=== PATIENT | female | born 1960 | race Caucasian/White ===

== ENCOUNTER 2016-03-26 07:39 | Emergency (ER) | payer OTHER, MEDICAID ==
[~2016-03-26 07:39] MED LIST: ADVAI500I PO; ALBU8I INH; ATOR20TA PO; CEFU1TAB20 PO; DUONI NEB; UMEC1INH; VITA10002 PO; VITA500T10 PO; Z.0.OXYGEN INH; [UNRECOGNIZED DRUG - CODE]
[2016-03-26] MEDS ORDERED: SODIUM CHLOR 0.9% 1000 ML INJ 1,000 ML IV ONE (07:48)
[2016-03-26 07:50] VITALS: BP 158/84; PULSE 97; RESP 20; TEMP 97.8; O2SAT 92
--- NOTE | 2016-03-26 07:55 | PD ---
HPI Chief Complaint: Respiratory Distress Time Seen by Provider: 07:47 Travel History International Travel<30 days: No Contact w/Intl Traveler<30days: No Traveled to known affect area: No History of Present Illness HPI 55-year-old female with history of COPD, presents to the ER today for 1 day history of dizziness, feels like the room is spinning, nausea, shortness of breath, chest discomfort. She denies any fevers, abdominal pain, diarrhea, or any other symptoms. Symptoms worsen with head movement. Modifying Factors: Worse with movement Associated Signs & Symptoms: Dizziness, nausea, shortness of breath, chest discomfort Risk Factors: COPD history PFSH Past Medical History Hx Anticoagulant Therapy: Yes (ASA 325MG) Arthritis: No Asthma: Yes Autoimmune Disease: No Cancer: No Cardiovascular Problems: Yes (CHOL) High Cholesterol: Yes (DIET CONTROLLED) Chemotherapy: No COPD: Yes Cerebrovascular Accident: No Diabetes: No Diminished Hearing: No Endocrine: No Gastrointestinal Disorders: No Genitourinary: Yes Hypertension: No Immune Disorder: No Implanted Vascular Access Dvce: No Kidney Stones: Yes (2004) Musculoskeletal: No Neurologic: No Psychiatric: No Reproductive: Yes (OVARIAN CYSTS) Respiratory: Yes (COPD AND BRONCHIECTASIS - ON 3L/NC 04/10) Immunizations Current: Yes Pneumonia: Yes Radiation Therapy: No Thyroid Disease: No Menopausal: Yes : 5 Para: 3 Miscarriage: 1 : 1 Ovarian Cysts: Yes Past Surgical History Abdominal Surgery: Yes (LAPAROSCOPY- LIVER LAC REPAIR.) AICD: No Arteriovenous Shunt: No Section: Yes Ear Surgery: No Genitourinary Surgery: Yes (LITHOTRIPSY X 2 ) Gynecologic Surgery: Yes Insulin Pump: No Joint Replacement: No Neurologic Surgery: No Pacemaker: No Thoracic Surgery: Yes Other Surgery: Yes (LITHOTRYPSY 3 WEEKS AGO, LIVER SURGERY) Social History Alcohol Use: No Tobacco Use: No (QUIT 2006) Substance Use: No Allergies-Medications (Allergen,Severity, Reaction): Coded Allergies: Simvastatin (Verified Allergy, Severe, MUSCLE CRAMPING, FATIGUE, 03/26/16) Reported Meds & Prescriptions Reported Meds & Active Scripts Active Reported Doxycycline (Doxycycline (Monohydrate)) 100 Mg Cap 1 Cap PO TID Dicyclomine (Dicyclomine HCl) 10 Mg Cap 10 Mg PO TID Welchol (Colesevelam HCl) 625 Mg Tab 1,875 Mg PO BID Aspirin 81 (Aspirin) 81 Mg Tabdr 81 Mg PO DAILY Duoneb (Ipratropium-Albuterol Neb) 0.5-2.5 Mg/3 Ml Neb 1 Nebule INH Q4HR NEB Ventolin Hfa 18 GM Inh (Albuterol Sulfate) 90 Mcg/Act Aer 2 Puff INH Q4H PRN Advair Diskus Inh (Fluticasone-Salmeterol Inh) 500-50 Mcg/Blist Aer 1 Puff INH BID Rinse mouth after use. Review of Systems Except as stated in HPI: all other systems reviewed are Neg Physical Exam Narrative GENERAL: Well-nourished, well-developed middle-aged white female patient in moderate distress, appears anxious, awake, alert, oriented 3. SKIN: Warm and dry. HEAD: Normocephalic. EYES: No scleral icterus. No injection or drainage. NECK: Supple, trachea midline. CARDIOVASCULAR: Regular rate and rhythm without murmurs, gallops, or rubs. RESPIRATORY: Breath sounds equal bilaterally. No accessory muscle use. GASTROINTESTINAL: Abdomen soft, non-tender, nondistended. MUSCULOSKELETAL: No cyanosis, or edema. BACK: Nontender without obvious deformity. No CVA tenderness. NEUROLOGICAL: Awake and alert. Cranial nerves II through XII intact. Motor and sensory grossly within normal limits. Five out of 5 muscle strength in all muscle groups. Normal speech. Data Data Last Documented VS Vital Signs Date Time Temp Pulse Resp B/P Pulse Ox O2 Delivery O2 Flow Rate FiO2 03/26/16 08:06 92 Nasal Cannula 3 03/26/16 08:06 97 20 03/26/16 07:50 97.8 158/84 Orders Complete Blood Count With Diff (03/26/16 07:48) Comprehensive Metabolic Panel (03/26/16 07:48) Magnesium (Mg) (03/26/16 07:48) Ckmb (Isoenzyme) Profile (03/26/16 07:48) Troponin I (03/26/16 07:48) Act Partial Throm Time (Ptt) (03/26/16 07:48) Prothrombin Time / Inr (Pt) (03/26/16 07:48) Chest, Single Ap (03/26/16 07:48) Ecg Monitoring (03/26/16 07:48) Iv Access Insert/Monitor (03/26/16 07:48) Oximetry (03/26/16 07:48) Meclizine (Antivert) (03/26/16 08:00) Ondansetron Inj (Zofran Inj) (03/26/16 08:00) Sodium Chloride 0.9% Flush (Ns Flush) (03/26/16 08:00) Sodium Chlor 0.9% 1000 Ml Inj (Ns 1000 M (03/26/16 07:48) Albuterol-Ipratropium Neb (Duoneb Neb) (03/26/16 08:00) Promethazine Inj (Phenergan Inj) (03/26/16 08:30) Ct Brain W/O Iv Contrast(Rout) (03/26/16 08:35) Urinalysis - C+S If Indicated (03/26/16 09:16) Meclizine (Antivert) (03/26/16 09:30) Urine Culture (03/26/16 09:24) Labs Laboratory Tests Test 03/26/16 03/26/16 07:50 09:24 White Blood Count 10.8 TH/MM3 Red Blood Count 4.62 MIL/MM3 Hemoglobin 14.0 GM/DL Hematocrit 43.0 % Mean Corpuscular Volume 93.1 FL Mean Corpuscular Hemoglobin 30.2 PG Mean Corpuscular Hemoglobin 32.5 % Concent Red Cell Distribution Width 13.1 % Platelet Count 305 TH/MM3 Mean Platelet Volume 6.6 FL Neutrophils (%) (Auto) 53.6 % Lymphocytes (%) (Auto) 35.5 % Monocytes (%) (Auto) 8.8 % Eosinophils (%) (Auto) 1.3 % Basophils (%) (Auto) 0.8 % Neutrophils # (Auto) 5.8 TH/MM3 Lymphocytes # (Auto) 3.8 TH/MM3 Monocytes # (Auto) 1.0 TH/MM3 Eosinophils # (Auto) 0.1 TH/MM3 Basophils # (Auto) 0.1 TH/MM3 CBC Comment DIFF FINAL Differential Comment Prothrombin Time 9.8 SEC Prothromb Time International 0.9 RATIO Ratio Activated Partial 23.5 SEC Thromboplast Time Sodium Level 141 MEQ/L Potassium Level 4.2 MEQ/L Chloride Level 104 MEQ/L Carbon Dioxide Level 27.8 MEQ/L Anion Gap 9 MEQ/L Blood Urea Nitrogen 13 MG/DL Creatinine 0.57 MG/DL Estimat Glomerular Filtration 110 ML/MIN Rate Random Glucose 133 MG/DL Calcium Level 8.5 MG/DL Magnesium Level 2.3 MG/DL Total Bilirubin 0.3 MG/DL Aspartate Amino Transf 67 U/L (AST/SGOT) Alanine Aminotransferase 114 U/L (ALT/SGPT) Alkaline Phosphatase 88 U/L Total Creatine Kinase 77 U/L Troponin I LESS THAN 0.02 NG/ML Total Protein 7.9 GM/DL Albumin 3.8 GM/DL Urine Collection Type CLEAN CATCH Urine Color YELLOW Urine Turbidity CLEAR Urine pH 6.0 Urine Specific [place] 1.016 Urine Protein TRACE mg/dL Urine Glucose (UA) NEG mg/dL Urine Ketones NEG mg/dL Urine Occult Blood NEG Urine Nitrite NEG Urine Bilirubin NEG Urine Leukocyte Esterase NEG Urine RBC 0-3 /hpf Urine WBC 0-2 /hpf Urine Squamous Epithelial > 8 /hpf Cells Urine Bacteria MOD /hpf Microscopic Urinalysis Comment CULTURE INDICATED Urine Collection Time 09:24 [facility] Medical Decision Making Medical Screen Exam Complete: Yes Emergency Medical Condition: Yes Medical Record Reviewed: Yes Interpretation(s) EKG shows sinus tachycardia at a rate of 100 bpm, no ST elevation or depression , and no arrhythmias. No significant T-wave inversions. Laboratory Tests Test 03/26/16 03/26/16 07:50 09:24 Mean Platelet Volume 6.6 FL (7.0-11.0) Monocytes (%) (Auto) 8.8 % (0.0-8.0) Monocytes # (Auto) 1.0 TH/MM3 (0-0.9) Activated Partial 23.5 SEC Thromboplast Time (24.3-30.1) Random Glucose 133 MG/DL (74-106) Aspartate Amino Transf 67 U/L (15-37) (AST/SGOT) Alanine Aminotransferase 114 U/L (10-53) (ALT/SGPT) Troponin I LESS THAN 0.02 NG/ML (0.02-0.05) Urine Squamous Epithelial > 8 /hpf (0-5) Cells Urine Bacteria MOD /hpf (NONE) Last [address] 03/26/16 0880 Signed Impressions: Service Date/Time: Saturday, March 26, 2016 08:53 - CONCLUSION: Normal examination for a patient of this age. Sandra Srivastava MD Chest X-Ray 03/26/16 0788 Signed Impressions: Service Date/Time: Saturday, March 26, 2016 08:08 - CONCLUSION: No acute disease. Liborio Castro MD FACR Differential Diagnosis Dizziness, nausea, chest discomfort, shortness of breathvertigo versus dehydration versus metabolic issues versus dysrhythmias versus COPD exacerbation versus pneumonia Narrative Course EKG did not show significant dysrhythmias. Vital signs are stable in the ER. She has no focal neurological deficits and I do not suspect an acute intracranial process. CT of the brain is negative for any signs of acute intracranial processes. Her lab work did not indicate any significant metabolic issues or signs of dehydration. Patient was given anti-medics and meclizine in the ER. On reevaluation at 10:30 AM, she is feeling some improvement. At this point, she was ambulated in the ER and is doing well. The plan was discussed with the patient and she states understanding. Diagnosis Primary Impression: BENIGN PAROXYSMAL VERTIGO, UNSPECIFIED EAR Med/Other Pt SpecificInfo: Prescription(s) given Scripts Promethazine (Phenergan)25 Mg Tab25 Mg PO Q6H PRN (Nausea/Vomiting) #7 TAB Ref 0 Prov:Yesy Pete MD 03/26/16 Meclizine 25 Mg Tab25 Mg PO DIRECTED PRN (VERTIGO) #20 TAB Ref 0 Prov:Yesy Pete MD 03/26/16 Disposition: 01 DISCHARGE HOME Condition: Stable Yesy Pete MD Mar 26, 2016 07:55
[2016-03-26 08:00] LABS: AUTOMATED NEUTROPHIL # 5.8 TH/MM3 (1.8-7.7); BASOPHIL # 0.1 TH/MM3 (0-0.2); BASOPHIL % 0.8 % (0.0-2.0); EOSINOPHIL # 0.1 TH/MM3 (0-0.4); EOSINOPHIL % 1.3 % (0.0-4.0); HEMO FLAGS DIFF FINAL; LYMPH % 35.5 % (9.0-44.0); LYMPHOCYTE # 3.8 TH/MM3 (1.0-4.8); MEAN CELL VOLUME 93.1 FL (80.0-100.0); MEAN CORPUSCULAR HEMOGLOBIN 30.2 PG (27.0-34.0); MEAN CORPUSCULAR HGB CONC 32.5 % (32.0-36.0); MONO % 8.8 % (0.0-8.0); NEUT % 53.6 % (16.0-70.0); PLATELET COUNT 305 TH/MM3 (150-450); RED BLOOD COUNT 4.62 MIL/MM3 (4.00-5.30); RED CELL DISTRIBUTION WIDTH 13.1 % (11.6-17.2); WHITE BLOOD COUNT 10.8 TH/MM3 (4.0-11.0)
[2016-03-26] MEDS ORDERED: ONDANSETRON HCL 4 MG/2 ML VIAL IVP ONE (08:00)
[2016-03-26] MEDS ORDERED: RESP: ALBUTEROL 2.5 MG/IPRATROPIUM 0.5 MG NEB (SCH) INH ONE (08:00)
[2016-03-26] MEDS ORDERED: MECLIZINE HCL 25 MG TAB PO ONE ×2 (08:00→09:30)
[2016-03-26] MEDS ORDERED: SODIUM CHLORIDE 0.9% FLUSH 5 ML FLUSH IVF PRN (08:00)
[2016-03-26 08:06] VITALS: O2SAT 92
[2016-03-26 08:07] LABS: CHLORIDE 104 MEQ/L (98-107); POTASSIUM 4.2 MEQ/L (3.5-5.1); SODIUM (NA) 141 MEQ/L (136-145)
[2016-03-26 08:11] LABS: ANION GAP 9 MEQ/L (5-15); APTT (PATIENT) 23.5 SEC (24.3-30.1); BICARBONATE 27.8 MEQ/L (21.0-32.0); BLOOD UREA NITROGEN 13 MG/DL (7-18); INTERNATIONAL NORMALIZED RATIO 0.9 RATIO; MAGNESIUM 2.3 MG/DL (1.5-2.5); PROTHROMBIN TIME - PATIENT 9.8 SEC (9.8-11.6)
[2016-03-26 08:14] LABS: ALT (GPT) 114 U/L (10-53); AST (GOT) 67 U/L (15-37); GLOMERULAR FILTRATION RATE 110 ML/MIN (>89)
[2016-03-26 08:16] LABS: TOTAL BILIRUBIN ADULT 0.3 MG/DL (0.2-1.0)
[2016-03-26] MEDS ORDERED: ADVA500A INH (08:16)
[2016-03-26] MEDS ORDERED: ASPI-110 PO (08:16)
[2016-03-26] MEDS ORDERED: WELC625T2 PO (08:16)
[2016-03-26] MEDS ORDERED: DICY10CA12 PO (08:16)
[2016-03-26] MEDS ORDERED: IPRASOL INH (08:16)
[2016-03-26] MEDS ORDERED: DOXY1CAP91 PO (08:16)
[2016-03-26] MEDS ORDERED: VENTAER INH (08:16)
[2016-03-26 08:17] LABS: ALKALINE PHOSPHATASE 88 U/L (45-117)
[2016-03-26 08:18] LABS: CREATINE KINASE 77 U/L (26-192)
[2016-03-26] MEDS ORDERED: PROMETHAZINE INJ 25 MG/ML VIAL IM ONE (08:30)
--- NOTE | 2016-03-26 08:42 | RADHPO ---
EXAM DATE/TIME: 03/26/2016 08:08 [facility] COMPARISON: CHEST SINGLE AP, March 17, 2014, 15:04. INDICATIONS : Chest pain, short of breath, nausea, dizziness. MEDICAL HISTORY : Chronic obstructive pulmonary disease. SURGICAL HISTORY : None. ENCOUNTER: Initial ACUITY: 1 day PAIN SCORE: 4/10 LOCATION: Bilateral chest FINDINGS: A single view of the chest demonstrates the lungs to be symmetrically aerated without evidence of mas s, infiltrate or effusion. The cardiomediastinal contours are unremarkable. Osseous structures are intact. CONCLUSION: No acute disease. Liborio Castro MD FACR on March 26, 2016 at 8:40 Board Certified Radiologist. This report was verified electronically.
--- NOTE | 2016-03-26 09:17 | RADHPO ---
EXAM DATE/TIME: 03/26/2016 08:53 [facility] COMPARISON: No previous studies available for comparison. INDICATIONS : Dizziness. Light sensitivity. RADIATION DOSE: 63.15 CTDIvol (mGy) MEDICAL HISTORY : Chronic obstructive pulmonary disease. Renal calculi. SURGICAL HISTORY : section. ENCOUNTER: Initial ACUITY: 1 day PAIN SCALE: 0/10 LOCATION: cranial TECHNIQUE: Multiple contiguous axial images were obtained of the head. Using automated exposure control and adj ustment of the mA and/or kV according to patient size, radiation dose was kept as low as reasonably a chievable to obtain optimal diagnostic quality images. FINDINGS: CEREBRUM: The ventricles are normal for age. No evidence of midline shift, mass lesion, hemorrhage or acute in farction. No extra-axial fluid collections are seen. POSTERIOR FOSSA: The cerebellum and brainstem are intact. The 4th ventricle is midline. The cerebellopontine angle i s unremarkable. EXTRACRANIAL: The visualized portion of the orbits is intact. SKULL: The calvaria is intact. No evidence of skull fracture. CONCLUSION: Normal examination for a patient of this age. Sandra Srivastava MD on March 26, 2016 at 9:15 Board Certified Radiologist. This report was verified electronically.
[2016-03-26 09:27] LABS: BLOOD, URINE NEG (NEG); GLUCOSE,URINE NEG (NEG); KETONE, URINE NEG (NEG); NITRITE,URINE NEG (NEG)
[2016-03-26 09:34] LABS: METHOD OF COLLECTION CLEAN CATCH; URINE COLOR YELLOW (YELLW/STRAW)
[2016-03-26 09:35] LABS: BACTERIA, URINE MOD /hpf; COMMENT (UR) CULTURE INDICATED; CULTURE IF INDICATED CULTURE INDICATED; RBC, URINE 0-3 /hpf (0-3); SQUAMOUS EPITHELIAL CELL URINE > 8 /hpf (0-5); WBC, URINE 0-2 /hpf (0-5)
[2016-03-26] MEDS ORDERED: PROM25TA5 PO (10:46)
[2016-03-26] MEDS ORDERED: MECL-62 PO (10:46)
[2016-03-26 10:49] VITALS: BP 135/73
--- NOTE | 2016-03-27 14:21 | EKG ---
Date Performed: 03/26/2016 Time Performed: 07:38:58 PTAGE: 55 years EKG: Sinus tachycardia. Normal ECG except for rate Compared to prior tracing no significant maloney ge PREVIOUS TRACING : 12/31/2014 21.07 DOCTOR: Prosper Erickson Interpretating Date/Time 03/27/2016 14:17:32
== END 2016-03-26 11:52 | disposition home or self-care (01) ==
LOC: PHED 07:39
DX: H81.10 Benign paroxysmal vertigo, unspecified ear (principal); R07.89 Other chest pain; R11.0 Nausea; R06.02 Shortness of breath; B96.20 Unspecified Escherichia coli [E. coli] as the cause of diseases classified elsewhere; J45.909 Unspecified asthma, uncomplicated; E78.00 Pure hypercholesterolemia, unspecified; J44.9 Chronic obstructive pulmonary disease, unspecified; R00.0 Tachycardia, unspecified; Z87.891 Personal history of nicotine dependence
CPT/HCPCS: 70450; 71010; 80053; 81001; 82550; 83735; 84484; 85025; 85610; 85730; 87077; 87086; 87186; 93005; 94664; 96361; 96372; 96374; 99284; J2405; J2550; J7030

== ENCOUNTER → 2016-06-09 | Outpatient (CLI) | payer OTHER, MEDICAID ==
[~2016-06-09] MED LIST changes: +ADVA500A INH; -ADVAI500I PO; -ALBU8I INH; +ASPI-110 PO; -ATOR20TA PO; -CEFU1TAB20 PO; +DICY10CA12 PO; +DOXY1CAP91 PO; -DUONI NEB; +IPRASOL INH; +MECL-62 PO; +PROM25TA5 PO; -UMEC1INH; +VENTAER INH; -VITA10002 PO; -VITA500T10 PO; +WELC625T2 PO; -Z.0.OXYGEN INH; -[UNRECOGNIZED DRUG - CODE]
--- NOTE | 2016-06-10 08:48 | RSPPFT ---
DATE OF PROCEDURE: 06/09/16 COMMENTS: VOLUMES DYNAMIC: FVC moderately reduced; FEV1 severely reduced. STATIC: VTG moderately increased; RV severely increased; TLC normal. FLOWS: FEV1% and FEF 25-75 severely reduced. DIFFUSION: Moderately reduced. FLOW VOLUME LOOP: Pattern of variable intrathoracic airways obstruction. IMPRESSION: Severe obstructive ventilatory defect with reduction in diffusion consistent with emphysema. Airways resistance is increased. There is significant hyperinflation. There is no significant improvement post-bronchodilator.
== END ==
LOC: HRSP 12:19
PROVIDERS: ATTEND Internal Medicine
DX: J44.9 Chronic obstructive pulmonary disease, unspecified (principal)
CPT/HCPCS: 94060; 94620; 94726; 94729

== ENCOUNTER 2017-03-14 08:07 | Inpatient (IN) | payer OTHER, MEDICARE, MEDICAID ==
[2017-03-14] VITALS (10 sets, daily range): BP systolic 104–131; BP diastolic 50–73; PULSE 97–124; RESP 16–22; TEMP 97.3–101.3; O2SAT 90–99
[~2017-03-14] VITALS: Ht 160 cm; Wt 74.4 kg
[~2017-03-14 08:07] MED LIST changes: -ASPI-110 PO; +ASPI1TAB57 PO; +COLE625 PO; -WELC625T2 PO
--- NOTE | 2017-03-14 08:17 | PD ---
HPI Chief Complaint: Abdominal Pain Time Seen by Provider: 08:17 Travel History International Travel<30 days: No Contact w/Intl Traveler<30days: No Traveled to known affect area: No History of Present Illness HPI 56-year-old female came to the emergency room with history of lower abdominal pain that started yesterday. Patient says she's been unable to sleep all night because of the pain. Patient had a cardiac catheterization that caused intra- abdominal hematoma. This was done in [facility]. She was discharged home by the end of January. Since then she has been doing okay up until this happened. Patient has history of COPD and requires home oxygen. When she came in she was wheezing and short of breath as well. Oxygen saturation was 89% on HER-2 liters of oxygen. Patient denies of any chest pain or any other symptoms. She says she's been nauseous but no vomiting or diarrhea. No blood in her stools. In fact she says she has been constipated for past 1 week and has not been having good bowel movements. Pain worsens when she is sitting up straight. She has to lay down and put the pressure off her abdomen in order to feel better. [facility] Past Medical History Narrative Medical List of her past medical, surgical, social and family history is reviewed from the nursing note. Hx Anticoagulant Therapy: No Arthritis: No Asthma: Yes Autoimmune Disease: No Cancer: No Cardiovascular Problems: Yes (CHOL) High Cholesterol: Yes (DIET CONTROLLED) Chemotherapy: No COPD: Yes Cerebrovascular Accident: No Diabetes: No Diminished Hearing: No Endocrine: No Gastrointestinal Disorders: No Genitourinary: Yes Hypertension: No Immune Disorder: No Implanted Vascular Access Dvce: No Kidney Stones: Yes (2004) Musculoskeletal: No Neurologic: No Psychiatric: No Reproductive: Yes (OVARIAN CYSTS) Respiratory: Yes (COPD, BRONCHIATESIS) Immunizations Current: Yes Pneumonia: Yes Radiation Therapy: No Thyroid Disease: No ?: Not Menopausal: Yes : 5 Para: 3 Miscarriage: 1 : 1 Ovarian Cysts: Yes Past Surgical History Abdominal Surgery: Yes (LAPAROSCOPY- LIVER LAC REPAIR.) AICD: No Arteriovenous Shunt: No Section: Yes Ear Surgery: No Genitourinary Surgery: Yes (LITHOTRIPSY X 2 ) Gynecologic Surgery: Yes Insulin Pump: No Joint Replacement: No Neurologic Surgery: No Pacemaker: No Thoracic Surgery: Yes Other Surgery: Yes (LITHOTRYPSY 3 WEEKS AGO, LIVER SURGERY) Social History Alcohol Use: No Tobacco Use: No (QUIT 2006) Substance Use: No Allergies-Medications (Allergen,Severity, Reaction): Coded Allergies: simvastatin (Unverified Allergy, Severe, MUSCLE CRAMPING, FATIGUE, 03/14/17) Comments List of her allergies reviewed from the nursing note. Reported Meds & Prescriptions Reported Meds & Active Scripts Active Reported Incruse Ellipta Inh (Umeclidinium [place] Inh) 0.0625 Mg/Act Inh 62.5 Mcg INH DAILY Dicyclomine (Dicyclomine HCl) 10 Mg Cap 10 Mg PO TID Duoneb (Ipratropium-Albuterol Neb) 0.5-2.5 Mg/3 Ml Neb 1 Nebule INH Q4HR NEB Ventolin Hfa 18 GM Inh (Albuterol Sulfate) 90 Mcg/Act Aer 2 Puff INH Q4H PRN Advair Diskus Inh (Fluticasone-Salmeterol Inh) 500-50 Mcg/Blist Aer 1 Puff INH BID Rinse mouth after use. Narrative Medication List of her home medications reviewed from the nursing note. Review of Systems Except as stated in HPI: all other systems reviewed are Neg Gastrointestinal: Positive: Abdominal Pain Physical Exam Narrative GENERAL: [-] SKIN: Focused skin assessment warm/dry. HEAD: Atraumatic. Normocephalic. EYES: Pupils equal and round. No scleral icterus. No injection or drainage. ENT: No nasal bleeding or discharge. Mucous membranes pink and moist. NECK: Trachea midline. No JVD. CARDIOVASCULAR: Regular rate and rhythm. No murmur appreciated. RESPIRATORY: Decreased air entry bilaterally with end expiratory wheeze GASTROINTESTINAL: Abdomen is distended and tense. Hepatic and splenic margins not palpable. MUSCULOSKELETAL: No obvious deformities. No clubbing. No cyanosis. No edema. NEUROLOGICAL: Awake and alert. No obvious cranial nerve deficits. Motor grossly within normal limits. Normal speech. PSYCHIATRIC: Appropriate mood and affect; insight and judgment normal. Data Data Last Documented VS Orders Orders Complete Blood Count With Diff (03/14/17 08:21) Comprehensive Metabolic Panel (03/14/17 08:21) Lipase (03/14/17 08:21) Prothrombin Time / Inr (Pt) (03/14/17 08:21) Urinalysis - C+S If Indicated (03/14/17 08:21) Ct Abd/Pel W/O Iv Contrast (03/14/17 08:21) Iv Access Insert/Monitor (03/14/17 08:21) Ecg Monitoring (03/14/17 08:21) Oximetry (03/14/17 08:21) Ondansetron Inj (Zofran Inj) (03/14/17 08:30) Sodium Chlor 0.9% 1000 Ml Inj (Ns 1000 M (03/14/17 08:21) Sodium Chloride 0.9% Flush (Ns Flush) (03/14/17 08:30) Albuterol Neb (Albuterol Neb) (03/14/17 08:30) Morphine Inj (Morphine Inj) (03/14/17 08:45) Ciprofloxacin 400 Mg Premix (Cipro 400 M (03/14/17 10:00) Metronidazole 500 Mg Inj (Flagyl 500 Mg (03/14/17 10:00) Ketorolac Inj (Toradol Inj) (03/14/17 10:30) Admit To Inpatient (03/14/17 ) Vital Signs (Adult) Q4H (03/14/17 10:50) Activity Oob Ad Paula (03/14/17 10:50) Diet Clear Liquid (03/14/17 Lunch) Sodium Chlor 0.9% 1000 Ml Inj (Ns 1000 M (03/14/17 10:50) Sodium Chloride 0.9% Flush (Ns Flush) (03/14/17 11:00) Sodium Chloride 0.9% Flush (Ns Flush) (03/14/17 21:00) Piperacil-Tazo 3.375 Gm Premix (Zosyn 3. (03/14/17 12:00) Acetaminophen (Tylenol) (03/14/17 11:00) Ondansetron Inj (Zofran Inj) (03/14/17 11:00) Basic Metabolic Panel (Bmp) (03/15/17 06:00) Complete Blood Count With Diff (03/15/17 06:00) Enoxaparin Inj (Lovenox Inj) (03/14/17 12:00) Albuterol-Ipratropium Neb (Duoneb Neb) (03/14/17 14:00) Albuterol-Ipratropium Neb (Duoneb Neb) (03/14/17 11:00) Admit Order (Ed Use Only) (03/14/17 10:51) Labs Laboratory Tests Test 03/14/17 08:50 03/14/17 10:08 White Blood Count 13.2 TH/MM3 Red Blood Count 4.57 MIL/MM3 Hemoglobin 13.0 GM/DL Hematocrit 40.7 % Mean Corpuscular Volume 89.1 FL Mean Corpuscular Hemoglobin 28.5 PG Mean Corpuscular Hemoglobin Concent 32.0 % Red Cell Distribution Width 12.8 % Platelet Count 235 TH/MM3 Mean Platelet Volume 6.2 FL Neutrophils (%) (Auto) 76.6 % Lymphocytes (%) (Auto) 17.9 % Monocytes (%) (Auto) 4.3 % Eosinophils (%) (Auto) 0.7 % Basophils (%) (Auto) 0.5 % Neutrophils # (Auto) 10.0 TH/MM3 Lymphocytes # (Auto) 2.4 TH/MM3 Monocytes # (Auto) 0.6 TH/MM3 Eosinophils # (Auto) 0.1 TH/MM3 Basophils # (Auto) 0.1 TH/MM3 CBC Comment DIFF FINAL Differential Comment Prothrombin Time 9.8 SEC Prothromb Time International Ratio 1.0 RATIO Blood Urea Nitrogen 11 MG/DL Creatinine 0.60 MG/DL Random Glucose 141 MG/DL Total Protein 7.5 GM/DL Albumin 3.3 GM/DL Calcium Level 8.7 MG/DL Alkaline Phosphatase 80 U/L Aspartate Amino Transf (AST/SGOT) 19 U/L Alanine Aminotransferase (ALT/SGPT) 27 U/L Total Bilirubin 0.4 MG/DL Sodium Level 136 MEQ/L Potassium Level 4.4 MEQ/L Chloride Level 100 MEQ/L Carbon Dioxide Level 30.0 MEQ/L Anion Gap 6 MEQ/L Estimat Glomerular Filtration Rate 103 ML/MIN Lipase 127 U/L Urine Collection Type CLEAN CATCH Urine Color YELLOW Urine Turbidity CLEAR Urine pH 5.5 Urine Specific [place] 1.017 Urine Protein NEG mg/dL Urine Glucose (UA) NEG mg/dL Urine Ketones NEG mg/dL Urine Occult Blood NEG Urine Nitrite NEG Urine Bilirubin NEG Urine Leukocyte Esterase NEG Urine WBC 0-2 /hpf Urine Squamous Epithelial Cells 6-8 /hpf Urine Amorphous Sediment FEW Microscopic Urinalysis Comment CULT NOT INDICATED Urine Collection Time 1010 MDM Medical Decision Making Medical Screen Exam Complete: Yes Emergency Medical Condition: Yes Medical Record Reviewed: Yes Differential Diagnosis Acute diverticulitis, obstipation, UTI Narrative Course 10:29 AM blood test results of back and patient has slight leukocytosis. She was medicated for pain and given IV fluid bolus. I've given her to albuterol nebulizers as well. CT scan report just came back and shows acute diverticulitis. I went back and reassessed her and she says she is still in pain. I'll give her some IV Toradol. I would like to admit her with her past, medicated history. Awaiting for the hospitalist to call back. Patient has been notified about this plan and she understands. I've ordered IV ciprofloxacin and IV Flagyl for her. Procedures EKG Prior to Arrival: No Diagnosis Primary Impression: Abdominal pain Qualified Codes: R10.30 - Lower abdominal pain, unspecified Additional Impressions: Acute diverticulitis COPD (chronic obstructive pulmonary disease) Qualified Codes: J44.1 - Chronic obstructive pulmonary disease with (acute) exacerbation Admitting Information Admitting Physician Requests: Admit Scripts Polyethylene Glycol 3350 Powder (Polyethylene Glycol 3350 Powder) 17 Gram Pow 17 GM PO DAILY for Constipation, #31 PACKET Prov: Arti Guo MD 03/18/17 Lactobacillus Acidophilus (Acidophilus/l-Sporogenes) 35 Million Cell-25 Million Cell Tab 1 TAB PO TID for bowel health, #90 TAB Prov: Arti Guo MD 03/18/17 Metronidazole (Flagyl) 500 Mg Tab 500 MG PO Q8HR for Infection, #28 TAB Prov: Arti Guo MD 03/18/17 Ciprofloxacin (Cipro) 500 Mg Tab 500 MG PO Q12HR for Infection, #20 TAB Prov: Arti Guo MD 03/18/17 Oxycodone HCl/Acetaminophen (Oxycodone-Acetaminophen 5-325) 5 Mg-325 Mg Tablet 1 TAB PO Q4H Y for PAIN , #10 TAB Prov: Arti Guo MD 03/18/17 Prednisone (Prednisone) 20 Mg Tab 20 MG PO BID for Inflammation, #15 TAB Take 20 mg twice a day for 3 days then 20 mg daily for 3 days then 10 mg daily for 3 days Prov: Arti Guo MD 03/18/17 Vasyl Hammond MD Mar 14, 2017 08:17
[2017-03-14] MEDS ORDERED: SODIUM CHLOR 0.9% 1000 ML INJ 1,000 ML IV SCH (08:21)
[2017-03-14] MEDS ORDERED: ONDANSETRON HCL 4 MG/2 ML VIAL IVP ONE (08:30)
[2017-03-14] MEDS ORDERED: MORPHINE SULFATE 4 MG/ML INJ IV PUSH ONE (08:30)
[2017-03-14] MEDS ORDERED: SODIUM CHLORIDE 0.9% FLUSH 10 ML FLUSH IV FLUSH PRN ×2 (08:30→11:00)
[2017-03-14] MEDS: RESP: ALBUTEROL 2.5 MG/3 ML NEB (SCH) INH ×2 (08:33→08:34)
[2017-03-14] MEDS ORDERED: UMEC1INH INH (08:41)
[2017-03-14] MEDS ORDERED: MORPHINE SULFATE 2 MG/ML INJ IV PUSH ONE (08:45)
[2017-03-14 08:54] LABS: BASOPHIL # 0.1 TH/MM3 (0-0.2); BASOPHIL % 0.5 % (0.0-2.0); EOSINOPHIL # 0.1 TH/MM3 (0-0.4); EOSINOPHIL % 0.7 % (0.0-4.0); HEMATOCRIT 40.7 % (35.0-46.0); LYMPH % 17.9 % (9.0-44.0); LYMPHOCYTE # 2.4 TH/MM3 (1.0-4.8); MEAN CELL VOLUME 89.1 FL (80.0-100.0); MEAN CORPUSCULAR HEMOGLOBIN 28.5 PG (27.0-34.0); MEAN PLATELET VOLUME 6.2 FL (7.0-11.0); MONO % 4.3 % (0.0-8.0); MONOCYTE # 0.6 TH/MM3 (0-0.9); NEUT % 76.6 % (16.0-70.0); PLATELET COUNT 235 TH/MM3 (150-450); RED BLOOD COUNT 4.57 MIL/MM3 (4.00-5.30); RED CELL DISTRIBUTION WIDTH 12.8 % (11.6-17.2); WHITE BLOOD COUNT 13.2 TH/MM3 (4.0-11.0)
[2017-03-14 09:01] LABS: CHLORIDE 100 MEQ/L (98-107); SODIUM (NA) 136 MEQ/L (136-145)
[2017-03-14 09:04] LABS: CALCIUM 8.7 MG/DL (8.5-10.1); PROTHROMBIN TIME - PATIENT 9.8 SEC (9.8-11.6)
[2017-03-14 09:05] LABS: ALBUMIN 3.3 GM/DL (3.4-5.0); BLOOD UREA NITROGEN 11 MG/DL (7-18); GLUCOSE,RANDOM 141 MG/DL (74-106); LIPASE 127 U/L (73-393)
[2017-03-14 09:08] LABS: ALT (GPT) 27 U/L (10-53); AST (GOT) 19 U/L (15-37); GLOMERULAR FILTRATION RATE 103 ML/MIN (>89)
[2017-03-14 09:09] LABS: TOTAL BILIRUBIN ADULT 0.4 MG/DL (0.2-1.0); TOTAL PROTEIN 7.5 GM/DL (6.4-8.2)
[2017-03-14 09:11] LABS: ALKALINE PHOSPHATASE 80 U/L (45-117)
--- NOTE | 2017-03-14 09:28 | RADRPT ---
EXAM DATE/TIME: 03/14/2017 09:04 [facility] COMPARISON: CT ABDOMEN & PELVIS W/O CONTRAST, June 26, 2014, 16:05. INDICATIONS : Lower abdominal pain and nausea. ORAL CONTRAST: No oral contrast ingested. RADIATION DOSE: 11.79 CTDIvol (mGy) MEDICAL HISTORY : Chronic obstructive pulmonary disease. Renal calculi. SURGICAL HISTORY : section. Lithotripsy. Liver laceration repair. ENCOUNTER: Initial ACUITY: 1 day PAIN SCALE: 10/10 LOCATION: Bilateral lower quadrant TECHNIQUE: Volumetric scanning of the abdomen and pelvis was performed. Using automated exposure control and ad justment of the mA and/or kV according to patient size, radiation dose was kept as low as reasonably achievable to obtain optimal diagnostic quality images. DICOM format image data is available electro nically for review and comparison. FINDINGS: LOWER LUNGS: There is bronchiectasis of the lower lobes bilaterally. LIVER: The liver is enlarged. There is diffuse decreased attenuation throughout the liver. No focal hepatic lesions are seen. No calcified gallstones are seen. SPLEEN: The spleen is mildly enlarged. It measures 13.1 cm in length. PANCREAS: Within normal limits. KIDNEYS: There are several small nonobstructing right renal stones measuring up to 4 mm. Left renal stones are not seen. No hydronephrosis is seen. ADRENAL GLANDS: Within normal limits. VASCULAR: There is no aortic aneurysm. BOWEL/MESENTERY: There are diverticula seen in the colon. It is very some inflammatory change in the posterior pelvis around the distal sigmoid colon concerning for diverticulitis in this region. There is minimal extral uminal air within the soft tissues in this region. ABDOMINAL WALL: Within normal limits. RETROPERITONEUM: There is no lymphadenopathy. BLADDER: No wall thickening or mass. REPRODUCTIVE: There is a 2.1 cm cyst of the left adnexa/ovary. INGUINAL: There is no lymphadenopathy or hernia. MUSCULOSKELETAL: Within normal limits for patient age. CONCLUSION: 1. Diverticulitis in the posterior lower pelvis at the distal sigmoid colon region. 2. Hepatomegaly and hepatic steatosis. 3. Lower lobe bronchiectasis. 4. Nonobstructing right renal stones. Cristhian Perez MD on March 14, 2017 at 9:21 Board Certified Radiologist. This report was verified electronically.
[2017-03-14] MEDS ORDERED: metroNIDAZOLE 500 MG INJ 100 ML IV ONE (10:00)
[2017-03-14] MEDS ORDERED: CIPROFLOXACIN 400 MG PREMIX 200 ML IV ONE (10:00)
[2017-03-14 10:13] LABS: BILIRUBIN, URINE NEG (NEG); BLOOD, URINE NEG (NEG); GLUCOSE,URINE NEG (NEG); KETONE, URINE NEG (NEG); NITRITE,URINE NEG (NEG); PH, URINE 5.5 (5.0-8.5); URINE LEUKOCYTE ESTERASE NEG (NEG)
[2017-03-14 10:22] LABS: URINE COLOR YELLOW (YELLW/STRAW)
[2017-03-14 10:23] LABS: AMORPHOUS SEDIMENT, URINE FEW; WBC, URINE 0-2 /hpf (0-5)
[2017-03-14] MEDS ORDERED: KETOROLAC TROMETHAMINE 30 MG/ML (IVP) VIAL IV PUSH ONE (10:30)
[2017-03-14] MEDS: PIPERACIL-TAZO 3.375 GM PREMIX 50 ML IV SCH ×2 (11:13→17:13)
[2017-03-14] MEDS: SODIUM CHLOR 0.9% 1000 ML INJ 1,000 ML IV SCH ×2 (11:15→17:20)
[2017-03-14] MEDS: ENOXAPARIN SODIUM 40 MG/0.4 ML SYRINGE SQ SCH (13:12)
--- NOTE | 2017-03-14 13:55 | HHI.HP ---
[facility] Service [facility] Primary Care Physician Brent Floyd M.D. Admission Diagnosis Acute diverticulitis, abdominal pain, COPD exacerbation Diagnoses: Chief Complaint: Abdominal pain Travel History International Travel<30 Days: No Contact w/Intl Traveler <30 Da: No Traveled to Known Affected Are: No History of Present Illness Written by Bonny Morrison, acting as scribe for Dr. Guo on 03/14/17 at 13:35. Ms. Sarmiento is a 56-year-old female patient with a known medical history of hyperlipidemia, asthma, COPD, and diverticulitis who presented to the ED with severe abdominal pain. Patient states that last evening she began to notice a pain in her suprapubic and right lower quadrant abdominal area. At first the pain was aching in nature and continued to worsen throughout the night and into the pharmacist manager. She states that the pain continued to worsen despite trying to take a previously prescribed Doxycycline, tramadol and Percocet. She denies ever having this type and severe pain before in the past. Denies any recent fevers, chills, chest pain, vomiting or diarrhea. Does admit to nausea and diaphoresis. Last BM was yesterday and was formed. Denies any hematozemia. It should be noted that patient underwent a cardiac catheterization back on Jan 28 and at the time caused an intraabdominal hematoma. Patient states for two weeks after that time she was in severe pain and had followed up with a general surgeon without any further recommendations but supportive care. Up until last evening the pain was tolerable. Patient sees Dr. Amanda, last seen 3 weeks ago without any further recommendations. Patient does have a history of COPD with use of 24-hour O2. Uses walker at home. Lives with her two daughters and son. Does have mitral valve prolapse, follows with Dr. Delgado. Review of Systems Constitutional: DENIES: Fever, Chills Eyes: DENIES: Blurred vision Respiratory: COMPLAINS OF: Shortness of breath, DENIES: Cough Cardiovascular: DENIES: Chest pain Gastrointestinal: COMPLAINS OF: Abdominal pain, Nausea, DENIES: Black stools, Bloody stools, Constipation, Diarrhea, Vomiting Integumentary: DENIES: Rash Hematologic/lymphatic: DENIES: Bruising Psychiatric: COMPLAINS OF: Anxiety Except as stated in HPI: all other systems reviewed are Neg Past Family Social History Past Medical History Hyperlipidemia COPD with bronchiectasis Asthma Diverticulitis History of kidney stones Mitral valve prolapse. IBS Past Surgical History Liver laceration repair (from childhood) Kidney stones with lithotripsy Right rotator cuff repair Reported Medications Reported Meds & Active Scripts Active Reported Incruse Ellipta Inh (Umeclidinium [place] Inh) 0.0625 Mg/Act Inh 62.5 Mcg INH DAILY Doxycycline (Doxycycline (Monohydrate)) 100 Mg Cap 1 Cap PO TID Dicyclomine (Dicyclomine HCl) 10 Mg Cap 10 Mg PO TID Duoneb (Ipratropium-Albuterol Neb) 0.5-2.5 Mg/3 Ml Neb 1 Nebule INH Q4HR NEB Ventolin Hfa 18 GM Inh (Albuterol Sulfate) 90 Mcg/Act Aer 2 Puff INH Q4H PRN Advair Diskus Inh (Fluticasone-Salmeterol Inh) 500-50 Mcg/Blist Aer 1 Puff INH BID Rinse mouth after use. Allergies: Coded Allergies: simvastatin (Unverified Allergy, Severe, MUSCLE CRAMPING, FATIGUE, 03/14/17) Active Ordered Medications Current Medications Medications (Trade) Dose Ordered Sig/Sandra Route Start Time Stop Time Status Last Admin Sodium Chloride 1,000 ml @ 100 mls/hr Q10H IV 03/14/17 10:50 03/14/17 11:15 (NS Flush) 2 ml UNSCH PRN IV FLUSH 03/14/17 11:00 (NS Flush) 2 ml BID IV FLUSH 03/14/17 21:00 Piperacillin Sod/ Tazobactam Sod 50 ml @ 100 mls/hr Q6H IV 03/14/17 12:00 03/14/17 11:13 (Tylenol) 650 mg Q4H PRN PO 03/14/17 11:00 (Zofran Inj) 4 mg Q6H PRN IV PUSH 03/14/17 11:00 (Lovenox Inj) 40 mg Q24H SQ 03/14/17 12:00 03/14/17 13:12 (Duoneb Neb) 1 ampule Q6HR WHILE AWAKE NEB NEB 03/14/17 14:00 (Duoneb Neb) 1 ampule Q2HR NEB PRN NEB 03/14/17 11:00 Family History Family medical history significant for lung CA in sister, brain CA in brother and cardiovascular disease in father. Social History Denies any tobacco, alcohol or illicit drug use. Physical Exam Vital Signs Vital Signs Date Time Temp Pulse Resp B/P (MAP) Pulse Ox O2 Delivery O2 Flow Rate FiO2 03/14/17 12:42 03/14/17 12:28 98 16 104/50 (68) 96 Nasal Cannula 3.00 03/14/17 11:00 100 20 130/66 (87) 96 Nasal Cannula 3.00 03/14/17 09:55 97 16 118/54 (75) 99 Room Air 03/14/17 08:38 90 Nasal Cannula 4.00 03/14/17 08:09 97.3 107 18 122/66 (84) 91 Physical Exam GENERAL: This is a well-nourished, well-developed female patient, lying in bed on supplemental O2. in no apparent distress. SKIN: No rashes, ecchymoses or lesions. Warm and dry. HEAD: Atraumatic. Normocephalic. EYES: Pupils equal round and reactive. Extraocular motions intact. No scleral icterus. No injection or drainage. ENT: Nose without bleeding, purulent drainage or septal hematoma. Throat without erythema, tonsillar hypertrophy or exudate. Uvula midline. Airway patent. NECK: Trachea midline. No JVD. Supple. CARDIOVASCULAR: Regular rate and rhythm without gallops, or rubs. RESPIRATORY: Clear to auscultation. Breath sounds equal bilaterally. No wheezes , rales, or rhonchi. GASTROINTESTINAL: Abdomen soft, nondistended. No guarding. Active bowel sounds x 4 q. No tenderness to palpation. MUSCULOSKELETAL: Extremities without clubbing, cyanosis, or edema. No joint tenderness, effusion, or edema noted. NEUROLOGICAL: Awake and alert. Cranial nerves II through XII intact. Motor and sensory grossly within normal limits. Five out of 5 muscle strength in all muscle groups. Normal speech. Laboratory Laboratory Tests Test 03/14/17 08:50 03/14/17 10:08 White Blood Count 13.2 Red Blood Count 4.57 Hemoglobin 13.0 Hematocrit 40.7 Mean Corpuscular Volume 89.1 Mean Corpuscular Hemoglobin 28.5 Mean Corpuscular Hemoglobin Concent 32.0 Red Cell Distribution Width 12.8 Platelet Count 235 Mean Platelet Volume 6.2 Neutrophils (%) (Auto) 76.6 Lymphocytes (%) (Auto) 17.9 Monocytes (%) (Auto) 4.3 Eosinophils (%) (Auto) 0.7 Basophils (%) (Auto) 0.5 Neutrophils # (Auto) 10.0 Lymphocytes # (Auto) 2.4 Monocytes # (Auto) 0.6 Eosinophils # (Auto) 0.1 Basophils # (Auto) 0.1 CBC Comment DIFF FINAL Differential Comment Prothrombin Time 9.8 Prothromb Time International Ratio 1.0 Blood Urea Nitrogen 11 Creatinine 0.60 Random Glucose 141 Total Protein 7.5 Albumin 3.3 Calcium Level 8.7 Alkaline Phosphatase 80 Aspartate Amino Transf (AST/SGOT) 19 Alanine Aminotransferase (ALT/SGPT) 27 Total Bilirubin 0.4 Sodium Level 136 Potassium Level 4.4 Chloride Level 100 Carbon Dioxide Level 30.0 Anion Gap 6 Estimat Glomerular Filtration Rate 103 Lipase 127 Urine Collection Type CLEAN CATCH Urine Color YELLOW Urine Turbidity CLEAR Urine pH 5.5 Urine Specific [place] 1.017 Urine Protein NEG Urine Glucose (UA) NEG Urine Ketones NEG Urine Occult Blood NEG Urine Nitrite NEG Urine Bilirubin NEG Urine Leukocyte Esterase NEG Urine WBC 0-2 Urine Squamous Epithelial Cells 6-8 Urine Amorphous Sediment FEW Microscopic Urinalysis Comment CULT NOT INDICATED Urine Collection Time 1010 Result Diagram: 03/14/17 0850 03/14/17 0850 Imaging Last Impressions Abdomen/Pelvis CT 03/14/17 0821 Signed Impressions: Service Date/Time: Tuesday, March 14, 2017 09:04 - CONCLUSION: 1. Diverticulitis in the posterior lower pelvis at the distal sigmoid colon region. 2. Hepatomegaly and hepatic steatosis. 3. Lower lobe bronchiectasis. 4. Nonobstructing right renal stones. Cristhian Perez MD Septic Shock Reassessment Septic shock perfusion: reassessment completed Caprini VTE Risk Assessment Caprini VTE Risk Assessment: No/Low Risk (score <= 1) Caprini Risk Assessment Model Point Value = 1 Point Value = 2 Point Value = 3 Point Value = 5 Age 41-60 Minor surgery BMI > 25 kg/m2 Swollen legs Varicose veins or History of unexplained or recurrent spontaneous Oral contraceptives or hormone replacement Sepsis (< 1 month) Serious lung disease, including pneumonia (< 1 month) Abnormal pulmonary function Acute myocardial infarction Congestive heart failure (< 1 month) History of inflammatory bowel disease Medical patient at bed rest Age 61-74 Arthroscopic surgery Major open surgery (> 45 min) Laparoscopic surgery (> 45 min) Malignancy Confined to bed (> 72 hours) Immobilizing plaster cast Central venous access Age >= 75 History of VTE Family history of VTE Factor V Leiden Prothrombin [id number] Lupus anticoagulant Anticardiolipin antibodies Elevated serum homocysteine Heparin-induced thrombocytopenia Other congenital or acquired thrombophilia Stroke (< 1 month) Elective arthroplasty Hip, pelvis, or leg fracture Acute spinal cord injury (< 1 month) Prophylaxis Regimen Total Risk Factor Score Risk Level Prophylaxis Regimen 0-1 Low Early ambulation 2 Moderate Order ONE of the following: *Sequential Compression Device (SCD) *Heparin 5000 units SQ BID 3-4 Higher Order ONE of the following medications: *Heparin 5000 units SQ TID *Enoxaparin/Lovenox 40 mg SQ daily (WT < 150 kg, CrCl > 30 mL/min) *Enoxaparin/Lovenox 30 mg SQ daily (WT < 150 kg, CrCl > 10-29 mL/min) *Enoxaparin/Lovenox 30 mg SQ BID (WT < 150 kg, CrCl > 30 mL/min) AND/OR *Sequential Compression Device (SCD) 5 or more Highest Order ONE of the following medications: *Heparin 5000 units SQ TID (Preferred with Epidurals) *Enoxaparin/Lovenox 40 mg SQ daily (WT < 150 kg, CrCl > 30 mL/min) *Enoxaparin/Lovenox 30 mg SQ daily (WT < 150 kg, CrCl > 10-29 mL/min) *Enoxaparin/Lovenox 30 mg SQ BID (WT < 150 kg, CrCl > 30 mL/min) AND *Sequential Compression Device (SCD) Assessment and Plan Problem List: (1) Acute diverticulitis ICD Code: K57.92 - Diverticulitis of intestine, part unspecified, without perforation or abscess without bleeding Status: Acute Plan: Abdominal/Pelvis CT reviewed showing diverticulitis in the posterior lower pelvis at the distal sigmoid colon region. Hepatomegaly and hepatic steatosis. Mild leukocytosis, WBC 13.2. Lipase WNL. BMP reviewed and essentially unremarkable. UAA negative. Afebrile. Ensure hydration, continue IVF. Status post 1 L NS bolus in ED. Was given Flagyl and Cipro IV in ED. Started on IV Zosyn 3.375mg. Allow clear liquid diet Supportive care. (2) Bronchiectasis ICD Code: J47.9 - Bronchiectasis, uncomplicated Plan: Lower lobe bronchiectasis History of COPD Continue Duonebs scheduled and PRN as needed. Continue inhalers. Supplemental O2 as needed. Supportive care. DVT Prophylaxis: SCDs. Lovenox. Physician Certification 2 Midnight Certification Type: Admission for Inpatient Services Order for Inpatient Services The services are ordered in accordance with Medicare regulations or non- Medicare payer requirements, as applicable. In the case of services not specified as inpatient-only, they are appropriately provided as inpatient services in accordance with the 2-midnight benchmark. Estimated LOS (days): 3 3 days is the estimated time the patient will need to remain in the hospital, assuming treatment plan goals are met and no additional complications. Post-Hospital Plan: Home Medical Decision Making Impression and Plan This note was transcribed by rosa [[email or web address]]. I, Dr. Arti uGo personally performed the history, physical exam, and medical decision making; and confirmed the accuracy of the information in the transcribed note. patient seen at time of scribing note, only signed now/ Authenticated by Dr. Arti Guo on 03/14/17 at 16:31. Bonny Morrison Mar 14, 2017 13:55 Arti Guo MD Mar 14, 2017 16:31
[2017-03-14] MEDS: RESP: ALBUTEROL 2.5 MG/IPRATROPIUM 0.5 MG NEB (SCH) NEB ×2 (14:40→19:57)
[2017-03-14] MEDS ORDERED: PATIENT OWN MEDICATION (Umeclidinium Bromide Inh (Incruse Ellipta Inh) 62.5 MCG) INH SCH (15:00)
[2017-03-14] MEDS: MORPHINE SULFATE 4 MG/ML INJ IV PUSH PRN ×2 (15:34→19:05)
[2017-03-14] MEDS: ONDANSETRON HCL 4 MG/2 ML VIAL IV PUSH PRN (15:41)
[2017-03-14] MEDS: ACETAMINOPHEN 325 MG TAB PO PRN (15:50)
[2017-03-14] MEDS: DICYCLOMINE HCL 10 MG CAP PO SCH (17:13)
[2017-03-14] MEDS: SODIUM CHLORIDE 0.9% FLUSH 10 ML FLUSH IV FLUSH SCH (21:07)
[2017-03-14] MEDS: BUDESONIDE-FORMOTEROL 160/4.5 MCG INHALER INH SCH (21:07)
[2017-03-14] MEDS: oxyCODONE/ACETAMINOPHEN 5 MG/325 MG TAB PO PRN (21:08)
[2017-03-15] VITALS (8 sets, daily range): BP systolic 117–127; BP diastolic 58–69; PULSE 89–118; RESP 18–20; TEMP 97.8–99.5; O2SAT 96–99
[2017-03-15] MEDS: PIPERACIL-TAZO 3.375 GM PREMIX 50 ML IV SCH ×5 (00:06→23:20)
[2017-03-15] MEDS: MORPHINE SULFATE 4 MG/ML INJ IV PUSH PRN ×3 (00:06→21:09)
[2017-03-15] MEDS: SODIUM CHLOR 0.9% 1000 ML INJ 1,000 ML IV SCH ×2 (05:10→17:04)
[2017-03-15] MEDS: oxyCODONE/ACETAMINOPHEN 5 MG/325 MG TAB PO PRN ×4 (05:10→23:21)
[2017-03-15 05:27] LABS: BICARBONATE 31.9 MEQ/L (21.0-32.0)
[2017-03-15 05:31] LABS: CREATININE 0.55 MG/DL (0.50-1.00)
[2017-03-15 05:40] LABS: AUTOMATED NEUTROPHIL # 9.2 TH/MM3 (1.8-7.7); BASOPHIL % 0.1 % (0.0-2.0); EOSINOPHIL # 0.1 TH/MM3 (0-0.4); EOSINOPHIL % 0.5 % (0.0-4.0); HEMATOCRIT 35.1 % (35.0-46.0); HEMOGLOBIN 11.4 GM/DL (11.6-15.3); LYMPH % 10.5 % (9.0-44.0); LYMPHOCYTE # 1.2 TH/MM3 (1.0-4.8); MEAN CELL VOLUME 89.5 FL (80.0-100.0); MEAN CORPUSCULAR HGB CONC 32.4 % (32.0-36.0); MEAN PLATELET VOLUME 6.5 FL (7.0-11.0); MONO % 6.7 % (0.0-8.0); MONOCYTE # 0.8 TH/MM3 (0-0.9); NEUT % 82.2 % (16.0-70.0); PLATELET COUNT 195 TH/MM3 (150-450); RED BLOOD COUNT 3.93 MIL/MM3 (4.00-5.30); RED CELL DISTRIBUTION WIDTH 13.2 % (11.6-17.2); WHITE BLOOD COUNT 11.3 TH/MM3 (4.0-11.0)
[2017-03-15] MEDS: RESP: ALBUTEROL 2.5 MG/IPRATROPIUM 0.5 MG NEB (SCH) NEB ×3 (07:52→19:18)
[2017-03-15] MEDS: BUDESONIDE-FORMOTEROL 160/4.5 MCG INHALER INH SCH ×2 (08:26→21:10)
[2017-03-15] MEDS: SODIUM CHLORIDE 0.9% FLUSH 10 ML FLUSH IV FLUSH SCH ×2 (08:27→21:00)
[2017-03-15] MEDS: DICYCLOMINE HCL 10 MG CAP PO SCH ×3 (08:27→17:04)
--- NOTE | 2017-03-15 10:44 | HHI.PR ---
Subjective Remarks Patient seen in follow-up for acute diverticulitis Complaining of abdominal discomfort somewhat relieved with IV morphine. No nausea. No diarrhea leukocytosis improved Objective Vitals Vital Signs Date Time Temp Pulse Resp B/P (MAP) Pulse Ox O2 Delivery O2 Flow Rate FiO2 03/15/17 08:33 18 03/15/17 08:00 97.8 106 20 117/58 (77) 96 03/15/17 07:53 97 Nasal Cannula 3.00 03/15/17 06:10 20 03/15/17 00:00 98.9 116 20 127/69 (88) 99 03/14/17 20:00 99.9 118 22 113/61 (78) 98 03/14/17 19:58 93 Nasal Cannula 3.00 03/14/17 15:00 101.3 124 20 131/73 (92) 95 03/14/17 14:43 95 Nasal Cannula 3.00 03/14/17 13:00 97.7 98 20 126/57 (80) 97 03/14/17 12:42 03/14/17 12:28 98 16 104/50 (68) 96 Nasal Cannula 3.00 03/14/17 11:00 100 20 130/66 (87) 96 Nasal Cannula 3.00 I/O 03/14/17 03/14/17 03/14/17 03/15/17 03/15/17 03/15/17 06:59 14:59 22:59 06:59 14:59 22:59 Intake Total 1050 ml 1260 ml 1530 ml Balance 1050 ml 1260 ml 1530 ml Intake Oral 210 ml 480 ml IV Total 1050 ml 1050 ml 1050 ml # Voids 1 2 # Bowel Movements 0 0 Result Diagram: 03/15/17 0455 03/15/17 0455 Imaging Last Impressions Abdomen/Pelvis CT 03/14/17 0821 Signed Impressions: Service Date/Time: Tuesday, March 14, 2017 09:04 - CONCLUSION: 1. Diverticulitis in the posterior lower pelvis at the distal sigmoid colon region. 2. Hepatomegaly and hepatic steatosis. 3. Lower lobe bronchiectasis. 4. Nonobstructing right renal stones. Cristhian Perez MD Objective Remarks GENERAL: This is a well-nourished, well-developed patient, in no apparent distress. CARDIOVASCULAR: Regular rate and rhythm without murmurs, gallops, or rubs. RESPIRATORY: Clear to auscultation. Breath sounds equal bilaterally. No wheezes , rales, or rhonchi. GASTROINTESTINAL: Abdomen soft, non-tender, nondistended. hypo active bowel sounds MUSCULOSKELETAL: Extremities without clubbing, cyanosis, or edema. NEURO: Alert & Oriented x4 to person, place, time, situation. Moves all ext x4 A/P Problem List: (1) Acute diverticulitis ICD Code: K57.92 - Diverticulitis of intestine, part unspecified, without perforation or abscess without bleeding Status: Acute Plan: Mild leukocytosis C improved Lipase WNL. BMP reviewed and essentially unremarkable iv fluid, IV Zosyn 3.375mg. clear liquid diet Supportive care (2) Bronchiectasis ICD Code: J47.9 - Bronchiectasis, uncomplicated Plan: acute exacerbation of COPD Lower lobe bronchiectasis Continue nebulized bronchodilators scheduled and PRN as needed. Discharge Planning Discharge in a.m. on oral antibiotics Arti Guo MD Mar 15, 2017 10:44
[2017-03-15] MEDS: ENOXAPARIN SODIUM 40 MG/0.4 ML SYRINGE SQ SCH (11:13)
[2017-03-15] MEDS: ONDANSETRON HCL 4 MG/2 ML VIAL IV PUSH PRN (17:04)
[2017-03-15] MEDS: ACETAMINOPHEN 325 MG TAB PO PRN (23:20)
[2017-03-15] MEDS: RESP: ALBUTEROL 2.5 MG/IPRATROPIUM 0.5 MG NEB (PRN) NEB (23:35)
[2017-03-16] VITALS (9 sets, daily range): BP systolic 122–154; BP diastolic 56–75; PULSE 110–125; RESP 20; TEMP 96–100.9; O2SAT 91–95
[2017-03-16] MEDS: SODIUM CHLOR 0.9% 1000 ML INJ 1,000 ML IV SCH ×4 (04:20→22:50)
[2017-03-16] MEDS: oxyCODONE/ACETAMINOPHEN 5 MG/325 MG TAB PO PRN ×3 (05:47→22:37)
[2017-03-16] MEDS: PIPERACIL-TAZO 3.375 GM PREMIX 50 ML IV SCH (05:47)
[2017-03-16] MEDS: RESP: ALBUTEROL 2.5 MG/IPRATROPIUM 0.5 MG NEB (PRN) NEB (06:05)
[2017-03-16] MEDS: RESP: ALBUTEROL 2.5 MG/IPRATROPIUM 0.5 MG NEB (SCH) NEB ×3 (07:22→19:33)
[2017-03-16] MEDS ORDERED: AMOXICILLIN/CLAVULANATE K 875 MG TAB PO SCH (09:00)
[2017-03-16] MEDS: BUDESONIDE-FORMOTEROL 160/4.5 MCG INHALER INH SCH ×2 (09:44→21:39)
[2017-03-16] MEDS: SODIUM CHLORIDE 0.9% FLUSH 10 ML FLUSH IV FLUSH SCH ×2 (09:44→21:40)
[2017-03-16] MEDS: MORPHINE SULFATE 4 MG/ML INJ IV PUSH PRN (09:45)
[2017-03-16] MEDS: DICYCLOMINE HCL 10 MG CAP PO SCH ×3 (09:45→17:51)
[2017-03-16] MEDS: ONDANSETRON HCL 4 MG/2 ML VIAL IV PUSH PRN ×2 (09:45→16:23)
[2017-03-16] MEDS ORDERED: DIATRIZOATE MEGLUM/DIATRIZOATE SOD 9 ML CUP PO ONE (11:15)
--- NOTE | 2017-03-16 11:31 | HHI.PR ---
Subjective Remarks Patient seen and evaluated today in follow-up for abdominal pain. Patient has diverticulitis on noncontrast CT with a history of intra-abdominal hematoma recently. The fever 100.9 today. Abdomen is still distended. Patient has not had a bowel movement and is complaining of difficulty urinating. She is also congested and has increased cough and decreased breathing ability which she says is due to her abdominal pain and distention Objective Vitals Vital Signs Date Time Temp Pulse Resp B/P (MAP) Pulse Ox O2 Delivery O2 Flow Rate FiO2 03/16/17 10:32 30 03/16/17 08:00 20 03/16/17 07:50 97.0 115 20 136/63 (87) 93 03/16/17 07:25 93 Nasal Cannula 3.00 03/16/17 05:47 98.8 03/16/17 00:00 100.9 125 20 122/56 (78) 95 03/16/17 00:00 100.0 03/15/17 21:13 99.5 03/15/17 20:00 97 Nasal Cannula 3.00 03/15/17 20:00 98.6 118 20 120/59 (79) 97 03/15/17 19:17 96 Nasal Cannula 3.00 03/15/17 16:00 98.0 89 18 120/64 (82) 96 03/15/17 12:00 98.0 89 20 122/60 (80) 96 I/O 03/15/17 03/15/17 03/15/17 03/16/17 03/16/17 03/16/17 07:00 15:00 23:00 07:00 15:00 23:00 Intake Total 1530 ml 1350 ml 3019 ml Balance 1530 ml 1350 ml 3019 ml Intake Oral 480 ml 300 ml 720 ml IV Total 1050 ml 1050 ml 2299 ml # Voids 2 2 2 # Bowel Movements 0 Result Diagram: 03/15/17 0455 03/15/17 0455 Objective Remarks GENERAL: This is a well-nourished, well-developed patient, in no apparent distress. CARDIOVASCULAR: Regular rate and rhythm without murmurs, gallops, or rubs. RESPIRATORY: Crackles and wheezes throughout GASTROINTESTINAL: Abdomen soft, non-tender, distended. Hypo active bowel sounds MUSCULOSKELETAL: Extremities without clubbing, cyanosis, or edema. NEURO: Alert & Oriented x4 to person, place, time, situation. Moves all ext x4 A/P Problem List: (1) Acute diverticulitis ICD Code: K57.92 - Diverticulitis of intestine, part unspecified, without perforation or abscess without bleeding Status: Acute Plan: Repeat CT abdomen pelvis with contrast BMP reviewed and essentially unremarkable iv fluid, IV Zosyn 3.375mg. clear liquid diet Supportive care (2) COPD (chronic obstructive pulmonary disease) ICD Code: J44.9 - Chronic obstructive pulmonary disease, unspecified Status: Acute Plan: With acute exacerbation, Follow-up chest x-ray, continue nebulizer bronchodilators, IV steroids and current antibiotic plan Assessment and Plan bladder scan is negative Discharge Planning Discharge in a.m. on oral antibiotics Problem Qualifiers (1) COPD (chronic obstructive pulmonary disease): Qualified Codes: J44.1 - Chronic obstructive pulmonary disease with (acute) exacerbation Arti Guo MD Mar 16, 2017 11:31
[2017-03-16] MEDS: ENOXAPARIN SODIUM 40 MG/0.4 ML SYRINGE SQ SCH (11:33)
[2017-03-16] MEDS ORDERED: IOHEXOL 350 MG/ML 10 ML VIAL (for RAD DIAG) IVCONTRAST ONE (13:43)
--- NOTE | 2017-03-16 14:16 | RADRPT ---
EXAM DATE/TIME: 03/16/2017 13:25 [facility] COMPARISON: CT ABDOMEN & PELVIS W CONTRAST, September 06, 2015, 11:32. INDICATIONS : Diffuse abdominal pain and distention. Nausea, vomiting and constipation. IV CONTRAST: 85 cc Omnipaque 350 (iohexol) IV ORAL CONTRAST: Prescribed oral contrast ingested. RADIATION DOSE: 15.70 CTDIvol (mGy) MEDICAL HISTORY : Chronic obstructive pulmonary disease. Renal calculi. Cardiovascular disease SURGICAL HISTORY : section. Lithotripsy. Liver laceration repair. ENCOUNTER: Subsequent ACUITY: 4 - 6 days PAIN SCALE: 8/10 LOCATION: Diffuse abdominal pain. TECHNIQUE: Volumetric scanning of the abdomen and pelvis was performed. Using automated exposure control and ad justment of the mA and/or kV according to patient size, radiation dose was kept as low as reasonably achievable to obtain optimal diagnostic quality images. DICOM format image data is available electro nically for review and comparison. FINDINGS: Moderate parabronchial thickening both lower lobes suspicious for bronchiectasis. Marked fatty replacement to the liver with prominent gallbladder Spleen, pancreas, adrenals and kidneys are unremarkable : 6 anterior to the liver In normal variant There is no retroperitoneal adenopathy In the pelvis there is marked induration along the sigmoid colon with induration in the mesentery. I don't see an abscess. This could represent bad sigmoid colitis or long segment diverticulitis. The re is no free air. There is no free fluid. Abdominal kern intact There is no adenopathy. CONCLUSION: Marked induration and sigmoid colon long segment extending from iliac crest to rectum probably all colitis. This could be long segment diverticulitis Minimal air and abdominal wall on the right probably from insulin injection I don't see identified abscess. Liborio Castro MD FACR on March 16, 2017 at 14:08 Board Certified Radiologist. This report was verified electronically.
--- NOTE | 2017-03-16 14:27 | RADRPT ---
EXAM DATE/TIME: 03/16/2017 13:22 [facility] COMPARISON: CHEST PA & LAT, December 31, 2014, 20:55. INDICATIONS : Short of breath. MEDICAL HISTORY : Chronic obstructive pulmonary disease. Bronchiectasis SURGICAL HISTORY : None. ENCOUNTER: Subsequent ACUITY: 2 days PAIN SCORE: 0/10 LOCATION: Bilateral chest FINDINGS: Scattered increased interstitial markings are noted involving the right upper lung field and left denny g base consistent with possible acute infiltrates. Clinical correlation is recommended. Underlying CO PD changes are noted the heart is stable. CONCLUSION: 1. Scattered increased interstitial markings within the right upper lung field and left lung base con sistent with possible acute infiltrates. Clinical correlation is recommended. 2. Underlying COPD changes. Franklyn Vasquez MD on March 16, 2017 at 14:23 Board Certified Radiologist. This report was verified electronically.
[2017-03-16] MEDS: methylPREDNISolone SOD SUCC 40 MG/1 ML VIAL IV PUSH SCH ×2 (16:22→22:37)
[2017-03-16] MEDS: CIPROFLOXACIN 400 MG PREMIX 200 ML IV SCH (16:35)
[2017-03-16] MEDS: metroNIDAZOLE 500 MG INJ 100 ML IV SCH (17:51)
[2017-03-17] VITALS (7 sets, daily range): BP systolic 119–153; BP diastolic 62–83; PULSE 94–118; RESP 12–20; TEMP 96.4–97.5; O2SAT 93–99
[2017-03-17] MEDS: metroNIDAZOLE 500 MG INJ 100 ML IV SCH ×3 (02:57→18:54)
[2017-03-17 05:13] LABS: AUTOMATED NEUTROPHIL # 7.4 TH/MM3 (1.8-7.7); BASOPHIL % 0.6 % (0.0-2.0); EOSINOPHIL % 0.1 % (0.0-4.0); HEMATOCRIT 34.1 % (35.0-46.0); HEMOGLOBIN 11.4 GM/DL (11.6-15.3); LYMPH % 4.6 % (9.0-44.0); LYMPHOCYTE # 0.4 TH/MM3 (1.0-4.8); MEAN CELL VOLUME 90.3 FL (80.0-100.0); MEAN CORPUSCULAR HEMOGLOBIN 30.1 PG (27.0-34.0); MEAN CORPUSCULAR HGB CONC 33.3 % (32.0-36.0); MEAN PLATELET VOLUME 6.2 FL (7.0-11.0); MONO % 1.1 % (0.0-8.0); MONOCYTE # 0.1 TH/MM3 (0-0.9); NEUT % 93.6 % (16.0-70.0); PLATELET COUNT 203 TH/MM3 (150-450); RED BLOOD COUNT 3.77 MIL/MM3 (4.00-5.30); RED CELL DISTRIBUTION WIDTH 12.8 % (11.6-17.2); WHITE BLOOD COUNT 7.9 TH/MM3 (4.0-11.0)
[2017-03-17 05:21] LABS: CHLORIDE 103 MEQ/L (98-107); SODIUM (NA) 142 MEQ/L (136-145)
[2017-03-17] MEDS: CIPROFLOXACIN 400 MG PREMIX 200 ML IV SCH ×2 (05:29→18:54)
[2017-03-17] MEDS: methylPREDNISolone SOD SUCC 40 MG/1 ML VIAL IV PUSH SCH ×3 (05:29→20:19)
[2017-03-17] MEDS: oxyCODONE/ACETAMINOPHEN 5 MG/325 MG TAB PO PRN ×3 (05:29→18:57)
[2017-03-17 05:32] LABS: ALBUMIN 2.8 GM/DL (3.4-5.0); ALKALINE PHOSPHATASE 81 U/L (45-117); ALT (GPT) 23 U/L (10-53); AST (GOT) 15 U/L (15-37); BICARBONATE 33.7 MEQ/L (21.0-32.0); BLOOD UREA NITROGEN 3 MG/DL (7-18); CALCIUM 8.8 MG/DL (8.5-10.1); CREATININE 0.56 MG/DL (0.50-1.00); GLOMERULAR FILTRATION RATE 112 ML/MIN (>89); GLUCOSE,RANDOM 159 MG/DL (74-106); TOTAL BILIRUBIN ADULT 0.3 MG/DL (0.2-1.0); TOTAL PROTEIN 7.2 GM/DL (6.4-8.2)
[2017-03-17] MEDS: RESP: ALBUTEROL 2.5 MG/IPRATROPIUM 0.5 MG NEB (SCH) NEB ×3 (07:20→19:41)
[2017-03-17] MEDS: SODIUM CHLOR 0.9% 1000 ML INJ 1,000 ML IV SCH (08:50)
[2017-03-17] MEDS: SODIUM CHLORIDE 0.9% FLUSH 10 ML FLUSH IV FLUSH SCH ×2 (10:00→20:19)
[2017-03-17] MEDS: BUDESONIDE-FORMOTEROL 160/4.5 MCG INHALER INH SCH ×2 (10:01→20:20)
[2017-03-17] MEDS: DICYCLOMINE HCL 10 MG CAP PO SCH ×3 (10:01→18:54)
[2017-03-17] MEDS: ENOXAPARIN SODIUM 40 MG/0.4 ML SYRINGE SQ SCH (12:00)
--- NOTE | 2017-03-17 13:11 | HHI.PR ---
Subjective Remarks Patient seen and evaluated in follow-up for abdominal pain and colitis. Abdominal pain is improved. Patient tolerating Cipro and metronidazole well. Still no satisfactory bowel movement per patient. Plan of care discussed with patient Objective Vitals Vital Signs Date Time Temp Pulse Resp B/P (MAP) Pulse Ox O2 Delivery O2 Flow Rate FiO2 03/17/17 08:00 96.4 102 12 142/83 (102) 95 03/17/17 07:20 97 Nasal Cannula 3.50 03/17/17 00:00 96.6 94 20 119/62 (81) 99 03/16/17 20:00 91 Nasal Cannula 3.50 Humidified 03/16/17 20:00 96.0 113 20 141/74 (96) 91 03/16/17 19:34 95 Nasal Cannula 3.50 03/16/17 17:27 16 03/16/17 16:00 98.2 113 20 154/71 (98) 93 03/16/17 15:50 98.2 113 20 154/71 (98) 93 03/16/17 14:08 95 Nasal Cannula 3.00 I/O 03/16/17 03/16/17 03/16/17 03/17/17 03/17/17 03/17/17 07:00 15:00 23:00 07:00 15:00 23:00 Intake Total 3019 ml 2651 ml 1522 ml Balance 3019 ml 2651 ml 1522 ml Intake Oral 720 ml 1151 ml 720 ml IV Total 2299 ml 1500 ml 802 ml Bladder Scan Volume Amount 0 ml # Voids 2 10 3 # Bowel Movements 0 0 Result Diagram: 03/17/17 0457 03/17/17 0457 Objective Remarks GENERAL: This is a well-nourished, well-developed patient, in no apparent distress. CARDIOVASCULAR: Regular rate and rhythm without murmurs, gallops, or rubs. RESPIRATORY: Crackles and wheezes throughout GASTROINTESTINAL: Abdomen soft, minimally tender right greater than left, distended. Hypo active bowel sounds MUSCULOSKELETAL: Extremities without clubbing, cyanosis, or edema. NEURO: Alert & Oriented x4 to person, place, time, situation. Moves all ext x4 A/P Problem List: (1) Acute diverticulitis ICD Code: K57.92 - Diverticulitis of intestine, part unspecified, without perforation or abscess without bleeding Status: Acute Plan: Repeat CT abdomen pelvis with contrast does show colitis BMP reviewed and essentially unremarkable iv fluid, IV metronidazole/Zosyn Diet advanced Supportive care/gi consulted (2) COPD (chronic obstructive pulmonary disease) ICD Code: J44.9 - Chronic obstructive pulmonary disease, unspecified Status: Acute Plan: With acute exacerbation, Follow-up chest x-ray concerning for early pneumonia continue current antibiotics , continue nebulizer bronchodilators, IV steroids and current antibiotic plan Problem Qualifiers (1) COPD (chronic obstructive pulmonary disease): Qualified Codes: J44.1 - Chronic obstructive pulmonary disease with (acute) exacerbation Arti Guo MD Mar 17, 2017 13:11
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
[2017-03-17] MEDS: LACTOBACILLUS ACIDOPHILUS TAB PO SCH (18:54)
[2017-03-18] VITALS: BP 151/64; PULSE 117; RESP 18; TEMP 96.8; O2SAT 94
[2017-03-18] MEDS: oxyCODONE/ACETAMINOPHEN 5 MG/325 MG TAB PO PRN ×2 (01:47→09:52)
[2017-03-18] MEDS: CIPROFLOXACIN 400 MG PREMIX 200 ML IV SCH (05:28)
[2017-03-18] MEDS: methylPREDNISolone SOD SUCC 40 MG/1 ML VIAL IV PUSH SCH (05:30)
[2017-03-18 07:43] VITALS: O2SAT 94
[2017-03-18] MEDS: RESP: ALBUTEROL 2.5 MG/IPRATROPIUM 0.5 MG NEB (SCH) NEB (07:43)
[2017-03-18 08:00] VITALS: BP 145/76; PULSE 108; RESP 20; TEMP 96.8; O2SAT 93
[2017-03-18] MEDS: SODIUM CHLORIDE 0.9% FLUSH 10 ML FLUSH IV FLUSH SCH (09:00)
[2017-03-18] MEDS ORDERED: metroNIDAZOLE 500 MG TAB PO SCH (09:00)
[2017-03-18] MEDS ORDERED: POLYETHYLENE GLYCOL 17 GM PKG PO SCH (09:00)
[2017-03-18] MEDS: DICYCLOMINE HCL 10 MG CAP PO SCH (09:52)
[2017-03-18] MEDS: LACTOBACILLUS ACIDOPHILUS TAB PO SCH (09:52)
[2017-03-18] MEDS: BUDESONIDE-FORMOTEROL 160/4.5 MCG INHALER INH SCH (09:53)
[2017-03-18] MEDS ORDERED: LACTULOSE SYRUP 20 GM/30 ML CUP PO ONE (10:15)
[2017-03-18] MEDS ORDERED: ONDANSETRON ODT 4 MG TAB PO PRN (10:15)
[2017-03-18] MEDS ORDERED: POLY17S PO (11:57)
[2017-03-18] MEDS ORDERED: PRED20 PO (11:57)
[2017-03-18] MEDS ORDERED: OXYC1TAB63 PO (11:57)
[2017-03-18] MEDS ORDERED: LACT PO (11:57)
[2017-03-18] MEDS ORDERED: CIPR-9 PO (11:57)
[2017-03-18] MEDS ORDERED: METR-1 PO (11:57)
--- NOTE | 2017-03-18 11:57 | HHI.DCPOC ---
Discharge Care Plan Diagnosis: (1) Colitis (2) Bronchiectasis (3) COPD (chronic obstructive pulmonary disease) (4) Acute diverticulitis Goals to Promote Your Health * To prevent worsening of your condition and complications * To maintain your health at the optimal level Directions to Meet Your Goals Take your medications as prescribed Follow your dietary instruction Follow activity as directed Keep your appointments as scheduled Take your immunizations and boosters as scheduled If your symptoms worsen call your PCP, if no PCP go to Urgent Care Center or Emergency Room Smoking is Dangerous to Your Health. Avoid second hand smoke Call the 24-hour hour crisis hotline for domestic abuse at Arti Guo MD Mar 18, 2017 11:57
[2017-03-18 12:00] VITALS: BP 146/81; PULSE 107; RESP 14; TEMP 98.2; O2SAT 96
[2017-03-18] MEDS: ENOXAPARIN SODIUM 40 MG/0.4 ML SYRINGE SQ SCH (12:00)
--- NOTE | 2017-03-18 12:01 | HHI.DS ---
Discharge Summary Admission Date Mar 14, 2017 at 10:52 Discharge Date: Mar 18, 2017 Admitting Diagnosis Acute diverticulitis, abdominal pain, COPD exacerbation (1) Acute diverticulitis ICD Code: K57.92 - Diverticulitis of intestine, part unspecified, without perforation or abscess without bleeding Status: Acute (2) COPD (chronic obstructive pulmonary disease) ICD Code: J44.9 - Chronic obstructive pulmonary disease, unspecified Status: Acute Procedures none Brief History - From Admission Written by Bonny Morrison, acting as scribe for Dr. Guo on 03/14/17 at 13:35. Ms. Sarmiento is a 56-year-old female patient with a known medical history of hyperlipidemia, asthma, COPD, and diverticulitis who presented to the ED with severe abdominal pain. Patient states that last evening she began to notice a pain in her suprapubic and right lower quadrant abdominal area. At first the pain was aching in nature and continued to worsen throughout the night and into the caponizer. She states that the pain continued to worsen despite trying to take a previously prescribed Doxycycline, tramadol and Percocet. She denies ever having this type and severe pain before in the past. Denies any recent fevers, chills, chest pain, vomiting or diarrhea. Does admit to nausea and diaphoresis. Last BM was yesterday and was formed. Denies any hematozemia. It should be noted that patient underwent a cardiac catheterization back on Jan 28 and at the time caused an intraabdominal hematoma. Patient states for two weeks after that time she was in severe pain and had followed up with a general surgeon without any further recommendations but supportive care. Up until last evening the pain was tolerable. Patient sees Dr. Amanda, last seen 3 weeks ago without any further recommendations. Patient does have a history of COPD with use of 24-hour O2. Uses walker at home. Lives with her two daughters and son. Does have mitral valve prolapse, follows with Dr. Delgado. CBC/BMP: 03/17/17 0457 03/17/17 0457 Significant Findings Laboratory Tests Test 03/17/17 04:57 Red Blood Count 3.77 MIL/MM3 (4.00-5.30) Hemoglobin 11.4 GM/DL (11.6-15.3) Hematocrit 34.1 % (35.0-46.0) Mean Platelet Volume 6.2 FL (7.0-11.0) Neutrophils (%) (Auto) 93.6 % (16.0-70.0) Lymphocytes (%) (Auto) 4.6 % (9.0-44.0) Lymphocytes # (Auto) 0.4 TH/MM3 (1.0-4.8) Blood Urea Nitrogen 3 MG/DL (7-18) Random Glucose 159 MG/DL (74-106) Albumin 2.8 GM/DL (3.4-5.0) Carbon Dioxide Level 33.7 MEQ/L (21.0-32.0) Imaging Last Impressions Chest X-Ray 03/16/17 0000 Signed Impressions: Service Date/Time: Thursday, March 16, 2017 13:22 - CONCLUSION: 1. Scattered increased interstitial markings within the right upper lung field and left lung base consistent with possible acute infiltrates. Clinical correlation is recommended. 2. Underlying COPD changes. Franklyn Vasquez MD Abdomen/Pelvis CT 03/16/17 0000 Signed Impressions: Service Date/Time: Thursday, March 16, 2017 13:25 - CONCLUSION: Marked induration and sigmoid colon long segment extending from iliac crest to rectum probably all colitis. This could be long segment diverticulitis Minimal air and abdominal wall on the right probably from insulin injection I don't see identified abscess. Liborio Castro MD FACR PE at Discharge GENERAL: This is a well-nourished, well-developed patient, in no apparent distress. CARDIOVASCULAR: Regular rate and rhythm without murmurs, gallops, or rubs. RESPIRATORY: Crackles and wheezes throughout GASTROINTESTINAL: Abdomen soft, minimally tender right greater than left, distended. Hypo active bowel sounds MUSCULOSKELETAL: Extremities without clubbing, cyanosis, or edema. NEURO: Alert & Oriented x4 to person, place, time, situation. Moves all ext x4 Hospital Course This patient seen and treated for abdominal pain which appeared to be diverticulitis as well as colitis as well as treated for COPD exacerbation/ acute bronchitis. She is also treated for pneumonia. The patient did well with antibiotics. Abdominal pain improved with bowel movements. She continued to occur on narcotics for pain until the pain subsided enough for oral medicines. She was able to tolerate her diet. She was seen by gastroenterology who recommended continuing antibiotics as well as a bowel regimen for constipation. Pt Condition on Discharge: Good Discharge Disposition: Discharge Home Discharge Time: <= 30 minutes Discharge Instructions DIET: Follow Instructions for: As Tolerated, No Restrictions Activities you can perform: Regular-No Restrictions Follow up Referrals: Gastroenterology - 1 Week with Hue Floyd MD New Medications: Ciprofloxacin (Cipro) 500 Mg Tab 500 MG PO Q12HR for Infection, #20 TAB Lactobacillus Acidophilus (Acidophilus/l-Sporogenes) 35 Million Cell-25 Million Cell Tab 1 TAB PO TID for bowel health, #90 TAB Metronidazole (Flagyl) 500 Mg Tab 500 MG PO Q8HR for Infection, #28 TAB Oxycodone HCl/Acetaminophen (Oxycodone-Acetaminophen 5-325) 5 Mg-325 Mg Tablet 1 TAB PO Q4H PRN for PAIN , #10 TAB Polyethylene Glycol 3350 Powder (Polyethylene Glycol 3350 Powder) 17 Gram Pow 17 GM PO DAILY for Constipation, #31 PACKET Prednisone (Prednisone) 20 Mg Tab 20 MG PO BID for Inflammation, #15 TAB Take 20 mg twice a day for 3 days then 20 mg daily for 3 days then 10 mg daily for 3 days Continued Medications: Albuterol 18 GM Inh (Ventolin Hfa 18 GM Inh) 90 Mcg/Act Aer 2 PUFF INH Q4H PRN for SHORTNESS OF BREATH, #1 INHALER 0 Refills Dicyclomine (Dicyclomine) 10 Mg Cap 10 MG PO TID for Bowel Management, CAP 0 Refills Fluticasone-Salmeterol Inh (Advair Diskus Inh) 500-50 Mcg/Blist Aer 1 PUFF INH BID, #1 INHALER 0 Refills Rinse mouth after use. Ipratropium-Albuterol Neb (Duoneb) 0.5-2.5 Mg/3 Ml Neb 1 NEBULE INH Q4HR NEB for Breathing Treatment, #180 NEBULE 0 Refills Umeclidinium [place] Inh (Incruse Ellipta Inh) 0.0625 Mg/Act Inh 62.5 MCG INH DAILY for Treat COPD, #1 INHALER 0 Refills Arti Guo MD Mar 18, 2017 12:01
[2017-03-18] MEDS ORDERED: predniSONE 20 MG TAB PO SCH (21:00)
[2017-03-18] MEDS ORDERED: CIPROFLOXACIN 500 MG TAB PO SCH (21:00)
== END 2017-03-18 13:36 | disposition home or self-care (01) | DRG 391 ==
LOC: PHED 08:07 → PHEDA 10:52 → PH3A 12:38
PROVIDERS: ADMIT Hospitalist; ATTEND Hospitalist
DX: K57.32 Diverticulitis of large intestine without perforation or abscess without bleeding (principal); J18.9 Pneumonia, unspecified organism; J47.0 Bronchiectasis with acute lower respiratory infection; J47.1 Bronchiectasis with (acute) exacerbation; K76.0 Fatty (change of) liver, not elsewhere classified; R16.0 Hepatomegaly, not elsewhere classified; Z99.81 Dependence on supplemental oxygen; E78.5 Hyperlipidemia, unspecified; I34.1 Nonrheumatic mitral (valve) prolapse; K52.9 Noninfective gastroenteritis and colitis, unspecified; K59.00 Constipation, unspecified; Z87.01 Personal history of pneumonia (recurrent)
CPT/HCPCS: 71046; 74176; 74177; 80048; 80053; 81001; 83690; 85025; 85610; 94640; 94664; 96361; 96374; 96375; J0744; J1650; J1885; J2270; J2405; J2543; J2920; J7030; J7613; Q9963; Q9967